=== PATIENT | female | born 1955 | race Caucasian/White ===

== ENCOUNTER → 2022-11-10 | Outpatient (CLI) | payer BC, SELFPAY ==
[2022-11-10 10:31] LABS: Hematocrit 37.2 % (37-47); Hemoglobin 12.2 g/dL (12.0-15.0); Mean Corp Hgb Conc 32.8 g/dL (32-36); Mean Corpuscular Hgb 28.3 pg (27.0-32.0); Mean Corpuscular Volume 86.3 fL (81-99); Mean Platelet Vol. 10.1 fl (6.2-12.0); Platelet Count 206 K/mm3 (150-450); RBC Distribution Width CV 13.4 % (11.6-14.6); RBC Distribution Width SD 42.5 fl (35.1-43.9); Red Blood Count 4.31 M/mm3 (4.2-5.4); White Blood Count 4.8 K/mm3 (4.4-11.0)
[2022-11-10 11:06] LABS: Hepatitis B Surface Antibody Non-Reactive
[2022-11-10 11:14] LABS: ALB/GLOB Ratio 1.1 RATIO (0.9-2.4); AST(SGOT) 25 U/L (15-37); Alanine Aminotransfer ALT/SGPT 24 U/L (13-56); Albumin, Serum 3.8 g/dL (3.2-5.0); Alkaline Phosphatase 42 U/L (45-117); Anion Gap 8 (5-15); BUN 17 mg/dL (7-18); BUN/Creat Ratio 18.3 RATIO (10-20); Calcium,Total 8.9 mg/dL (8.5-10.1); Chloride 106 mmol/L (98-107); Creatinine, Serum 0.93 mg/dL (0.55-1.02); EST Glomerular Filtration Rate 64 mL/min (>60); Est Glom Filt Rate - Afr Amer 77 mL/min (>60); Globulin 3.4 g/dL (2.2-4.2); Glucose 96 mg/dL (74-106); Potassium 3.5 mmol/L (3.5-5.1); Protein, Total 7.2 g/dL (6.4-8.2); Sodium Level 138 mmol/L (136-145)
[2022-11-11 15:09] LABS: t-Transglutaminase IgA <2 U/mL (0-3)
[2022-11-12 16:09] LABS: Endomysial Antibody IgA Negative (Negative); G6PD Quant Test 236 (127-427); HEPATITIS B SURFACE AG Negative (Negative); Hep C Antibodies Non Reactive (Non Reactive); Hepatitis A AB, Total Negative (Negative); Hepatitis A IgM Antibody Negative (Negative); Hepatitis B Core AB IgM Negative (Negative); QNTFERON TB Mitogen Value > 10.00 IU/mL (.); QNTFERON TB Nil Value 0.03 IU/mL (.); QNTFERON TB1+ Ag Value 0.02 IU/mL (.); QNTFERON TB2+ Ag Value 0.04 IU/mL (.); QNTIFERON TB Positive Criteria Negative (Negative); Red Blood Cell Count Test/G6PD 4.27 x10E6/uL (3.77-5.28)
== END | disposition home or self-care (01) ==
LOC: MTLAB 09:17
PROVIDERS: PCP Internal Medicine; Referring Provider Dermatology Pediatric Dermatology; Visit Provider Dermatology Pediatric Dermatology
DX: L40.0 Psoriasis vulgaris (principal); L40.59 Other psoriatic arthropathy; S63.102A Unspecified subluxation of left thumb, initial encounter; Z79.899 Other long term (current) drug therapy; K90.0 Celiac disease
CPT/HCPCS: 36415; 80053; 80074; 82955; 83516; 85027; 86255; 86480; 86706; 86708

== ENCOUNTER → 2023-08-25 | Outpatient (CLI) | payer BC, SELFPAY ==
[2023-08-30 11:09] LABS: Clam 0.14 kU/L (Class 0/I); Codfish <0.10 kU/L (Class 0); Corn 0.23 kU/L (Class 0/I); Egg, White 0.13 kU/L (Class 0/I); Gluten <0.10 kU/L (Class 0); Milk (Cow) <0.10 kU/L (Class 0); SCALLOP 0.15 kU/L (Class 0/I); SESAME SEED 0.32 kU/L (Class I); Shrimp 0.65 kU/L (Class II); Walnut, (Food) 0.12 kU/L (Class 0/I); Wheat 0.26 kU/L (Class 0/I); Yeast 1.05 kU/L (Class II)
== END | disposition home or self-care (01) ==
PROVIDERS: PCP Internal Medicine; Referring Provider Otolaryngology; Visit Provider Otolaryngology
DX: T78.40XA Allergy, unspecified, initial encounter (principal)
CPT/HCPCS: 36415; 86003